=== PATIENT | female | born 1960 ===

== ENCOUNTER 2021-05-04 08:48 | Outpatient (CLI) | payer OTHER, SELFPAY ==
--- NOTE | 2021-05-16 11:09 | WPDSLEEPSTUD ---
Sleep Study Date of Study: 05/04/21 <Araceli Spear, DO - Last Filed: 05/17/21 10:50> Ordering Provider: Carol Apodaca, SON <Araceli Spear DO - Last Filed: 05/17/21 10:50> Interpreting Physician: Araceli Spear DO <Araceli Spear DO - Last Filed: 05/17/21 10:50> Sleep Study Type: Split Polysomnogram <Araceli Spear DO - Last Filed: 05/17/21 10:50> Height: 1.68 m <Araceli Spear DO - Last Filed: 05/17/21 10:50> Weight: 61.235 kg <Araceli Spear DO - Last Filed: 05/17/21 10:50> Body Mass Index: 21.7 <Araceli Spear DO - Last Filed: 05/17/21 10:50> Neck Circumference (inches): 14 <Araceli Spear DO - Last Filed: 05/17/21 10:50> [place]: 9 <Araceli Spear DO - Last Filed: 05/17/21 10:50> Reason for Sleep Study Unrefreshing sleep <Araceli Spear DO - Last Filed: 05/17/21 10:50> Sleep History The patient is a 60-year-old female with hypertension that had a split study ordered by her primary care due to on requesting sleep and daytime hypersomnia. The patient states the she occasionally awakens from sleep short of breath. She occasionally awakens at night with heartburn, belching or cough. She constantly snores and it is constantly loud enough that others complaint. She constantly has trouble sleeping when she has a cold. She occasionally wakes up gasping for air throughout the night. She occasionally has breathing problems at night observed by others. She rarely sweats excessively at night. She frequently notices heart palpitations or irregular heartbeats during the night. She denies falling asleep during the day and while driving. She denies sleep paralysis, cataplexy and hypnagogic / hypnopompic hallucinations. She denies having trouble at work due to sleepiness. She occasionally has nightmares. She frequently has thoughts racing through her mind. She occasionally feels sad or depressed. She frequently has anxiety. She constantly has muscular tension. She rarely notices parts of her body jerk. She rarely kicks throughout the night. She denies crawling aching feelings in her legs as well as leg pain during the night. She denies grinding her teeth during sleep and awakening with jaw pain in the morning. She is occasionally bothered by pain during the day but rarely awakened by pain during the night. She frequently wakes up feeling stiff in the morning with sore and achy muscles. She frequently wakes up with pain in the neck, spine and other joints. She goes to bed between 9 and 10:00 p.m. on weekdays and between 10 and 11:00 p.m. on weekends. It takes a very long time for her to fall asleep. She will wake up 4-5 times throughout the night. When she awakens, she will use the restroom and then toss and turn in bed. She can fall asleep within a few minutes. She wakes up between 430 and 5:00 a.m. on weekdays and between 530 and 6:00 a.m. on the weekends. She typically gets 7 hours of sleep per night. She currently lives with her . She does not consume any caffeinated beverages within 2 hours of bedtime. She does not engage in physical exercise before bedtime. She will occasionally watch television before falling asleep. She does not take any naps in the afternoon or the evening. She currently smokes half a pack of cigarettes per day. She drinks 2-3 cups of caffeinated beverage per day. She will have 3-4 alcoholic beverages per weekend. She denies recreational drug use. <Araceli Spear DO - Last Filed: 05/17/21 10:50> FORMERLY [facility] Past Medical History Medical History: Medical History Hypertension <Araceli Spear DO - Last Filed: 05/17/21 10:50> Medications Home Medications: Home Medications Medication Instructions Recorded Confirmed Type lisinopril 10 mg PO DAILY 05/16/21 05/16/21 History
[2021-05-17 10:42] VITALS: BMI 21.7
== END 2021-05-05 04:48 | disposition home or self-care (01) ==
LOC: ANHCSM 08:58
PROVIDERS: PCP Nurse Practitioner Family; Visit Provider Nurse Practitioner Family
DX: G47.33 Obstructive sleep apnea (adult) (pediatric) (principal)
CPT/HCPCS: 95810; 95811